=== PATIENT | male | born 1980 | race Caucasian/White ===

== ENCOUNTER 2022-01-16 00:32 | Emergency (ER) | payer OTHER ==
[~2022-01-16] VITALS: Ht 193 cm; Wt 141.0 kg
[2022-01-16] VITALS (16 sets, daily range): BP systolic 134–171; BP diastolic 76–106
[2022-01-16 01:25] LABS: HEMATOCRIT 42.9 % (39.0-50.0); HEMOGLOBIN 15.4 g/dl (14.0-18.0); IMMATURE GRANULOCYTES 0.4 % (0.0-5.0); MEAN CORPUSCULAR HGB 30.9 pG CALC (26.0-32.0); MEAN CORPUSCULAR HGB CONC 35.9 g/dL CAL (32.0-36.0); NEUT# 3.77 thou/uL (1.82-7.42); RED BLOOD COUNT 4.99 mill/uL (4.70-6.10); RED CELL DISTRI WIDTH 12.9 % (11.5-15.5)
[2022-01-16 01:41] LABS: ALBUMIN 5.3 g/dL (3.2-5.0); ALKALINE PHOSPHATASE 65 u/l (38-126); ANION GAP 16 (6-22 (CALC)); BUN 10 mg/dL (9-20); BUN/CREATININE RATIO 14 (12-20 (CALC)); CARBON DIOXIDE 27 mmol/l (22-30); CHLORIDE 102 mmol/l (95-108); CPK 104 u/l (52-200); CREATININE 0.7 mg/dL (0.7-1.3); GFR > 60 ML/MIN (>=60 (CALC)); GFR FOR AFR.AMER. > 60 ML/MIN (>=60 (CALC)); LIPASE 56 u/l (23-300); SGOT/AST 51 u/l (17-59); SODIUM 139 mmol/l (137-146); TOTAL PROTEIN 9.4 g/dL (6.3-8.2)
[2022-01-16 02:16] LABS: POTASSIUM 5.6 mmol/l (3.5-5.1)
== END 2022-01-16 04:31 | disposition home or self-care (01) | DRG 313 ==
LOC: ED 00:32
PROVIDERS: Internal Medicine
DX: R07.9 Chest pain, unspecified (principal)